=== PATIENT | female | born 1965 | race Hispanic/Latino ===

== ENCOUNTER 2019-06-10 23:47 | Inpatient (IN) | payer BC, OTHER ==
[~2019-06-10] VITALS: Ht 160 cm; Wt 118.4 kg
--- NOTE | 2019-06-10 11:00 | NUR ---
INI[facility] LIVES W SPOUSE WHO WILL PROVIDE TRANSPORT HOME- HOME SAFE AND ACCESSIBEL, NO STAIRS, H/CAPPED RESTROOM, USES A CANE ON OCCAISION. HERE Javier RINALDI, HAD THIS ONCE BEFORE, RESOLVED COMPLETELY DCP IS HOME Addendum: 06/11/19 at 1805 by KOLTON LEYVA RN CM Amended: Links added. Addendum: 06/14/19 at 1808 by KOLTON LEYVA RN CM DISREGARD- WRONG PT
--- NOTE | 2019-06-10 11:01 | NUR ---
CM NOTE 1100 WRONG PT
[2019-06-11] MEDS ORDERED: KETOROLAC TROMETHAMINE 30MG/ML ONE (00:23)
[2019-06-11] MEDS ORDERED: ONDANSETRON HCL 4 MG/2 ML VIAL ONE (00:23)
[2019-06-11] MEDS ORDERED: SODIUM CHLORIDE 0.9% 1000ML 1,000 ML IV ONE (00:24)
[2019-06-11 00:33] LABS: EOSINOPHILS % (AUTO) 4.5 % (0.0-8.0); HEMATOCRIT 39.9 % (36-48); LYMPHOCYTES % (AUTO) 33.1 % (21.0-51.0); MEAN CORPUSCULAR HEMOGLOBIN 31.6 pg (27.0-33.0); MEAN CORPUSCULAR HGB CONC 33.9 g/dL (32.0-36.0); MONOCYTES % (AUTO) 8.1 % (3.0-13.0); NEUTROPHILS % (AUTO) 53.3 % (40.0-77.0); PLATELET COUNT (AUTO) 236 K/uL (130-400); RED BLOOD CELL COUNT(AUTO) 4.28 MIL/uL (4.00-5.50); RED CELL DISTRIBUTION WIDTH 13.8 % (11.0-15.5); WHITE BLOOD COUNT (AUTO) 10.2 K/uL (4.8-10.8)
[2019-06-11 00:34] LABS: BILIRUBIN,URINE Negative (NEGATIVE); COLOR,URINE Yellow (YELLOW); GLUCOSE, URINE (UA) Negative (NEGATIVE); KETONES,URINE Negative (NEGATIVE); LEUKOCYTE ESTERASE ,URINE Trace (NEGATIVE); NITRATE,URINE Negative (NEGATIVE); OCCULT BLOOD,URINE Large (NEGATIVE); PROTEIN,URINE Trace mg/dL (NEGATIVE)
[2019-06-11 00:36] LABS: APPEARANCE,URINE SLIGHTLY CLOUDY (CLEAR)
[2019-06-11 00:55] LABS: RBC,URINE 51-100 /HPF (0-1)
[2019-06-11 00:56] LABS: BACTERIA,URINE Rare /HPF (None Seen); MUCUS,URINE Rare LPF (None Seen)
[2019-06-11] MEDS ORDERED: MORPHINE SULFATE 4 MG/1ML SYG ONE ×2 (00:58→02:09)
[2019-06-11 01:12] LABS: ALBUMIN 3.5 g/dL (3.5-5.0); BILIRUBIN,TOTAL 0.4 mg/dL (0.2-1.0); CREATININE 0.8 mg/dL (0.5-1.5); POTASSIUM 3.8 mmol/L (3.5-5.1); TOTAL PROTEIN, SERUM 7.1 g/dL (6.0-8.3)
[2019-06-11] MEDS ORDERED: KETOROLAC TROMETHAMINE 30MG/ML IV PRN (03:45)
[2019-06-11 04:48] VITALS: BP 167/99
--- NOTE | 2019-06-11 05:04 | NUR ---
ADMIT PT ADMITTED TO ROOM 408,AAOX3. NO COMPLAINTS OF LEFT FLANK PAINS NOR ANY DISCOMFORT AT THIS TIME. ADMISSION CARE DONE. ADMISSION DATA BASE COMPLETED. PLACED PT NPO, PT VERBALIZES UNDERSTANDING. PCP ASSISTED PT TO SHOWER. IN FOR MORE CARE AND MANAGEMENT. Addendum: 06/11/19 at 0513 by SCOTTY MESSINA RN RN Amended: Links added.
[2019-06-11] MEDS: SODIUM CHLORIDE 0.9% 1000ML 1,000 ML IV SCH ×2 (05:18→18:25)
[2019-06-11 08:00] VITALS: BP 133/74
[2019-06-11] MEDS ORDERED: HYDROCODONE/ACETAMINOPHEN 5/325 MG TAB PO PRN (09:15)
[2019-06-11] MEDS ORDERED: ACETAMINOPHEN 325 MG TAB PO PRN (09:15)
[2019-06-11] MEDS ORDERED: HYDRALAZINE HCL 20 MG/ML VIAL IV PRN (09:15)
--- NOTE | 2019-06-11 09:30 | NUR ---
[facility] MET Javier CLARKE, AMALIAIOUSLY GRIACING IN PAIN, UNCOMFORTABLE, JUST RECENTLY MEDICATED, PT IS INDP OF ADLS, WORKS, DRIVES, NO DME, LIVES WITH SON AND NEPHEW WHO WILL SUPPLY TRANSPORT HOME, UNINSURED, GOES TO [employer], PAYS SHE GOES. DCP IS HOME, CM TO FOLLOW Addendum: 06/11/19 at 1809 by KOLTON LEYVA RN CM Amended: Links added.
[2019-06-11] MEDS: FAMOTIDINE/PF 20 MG/2 ML VIAL IV SCH ×2 (10:53→20:07)
[2019-06-11] MEDS: KETOROLAC TROMETHAMINE 30MG/ML IV PRN ×2 (10:53→22:53)
[2019-06-11] MEDS: ENOXAPARIN SODIUM 30 MG/0.3 ML SQ SCH (10:54)
[2019-06-11 11:00] VITALS: BP 147/90
[2019-06-11 16:00] VITALS: BP 154/75
--- NOTE | 2019-06-11 18:00 | NUR ---
INITIAL MET W PATIENT, OBVIOUSLY IN GREAT PAIN, FACIAL GRIMACING AND GUARDING, W KIDNEY STONES, H2ND BOUT, IN 2 YERS; EMPLOYED, INDP, NO DME, DRIVES, NO INSURANCE, GOES TO [facility] AND PAYS SHE GOES. HOME SAFE AND ACCESSIBLE, [facility] WILL PROVIDE TRANSPORT HOME. DCP HOME AFTER PROCEDURE .CM TO FOLLOW Addendum: 06/11/19 at 1805 by KOLTON LEYVA RN CM Amended: Links added.
[2019-06-11 19:03] VITALS: BP 172/89
--- NOTE | 2019-06-11 19:09 | NUR ---
UROLOGY DR. ARORA IN TO SEE PATIENT. NEW ORDERS RECEIVED.
[2019-06-11] MEDS ORDERED: MAGNESIUM CITRATE 296 ML SOLUTION PO ONE (21:00)
[2019-06-11] MEDS ORDERED: LACTULOSE 20 GM/30 ML UDCUP PO SCH (21:00)
[2019-06-11] MEDS: MORPHINE SULFATE 2 MG/ML 1ML SYG IVP PRN (21:20)
[2019-06-11 23:29] VITALS: BP 135/84
[2019-06-12 04:00] VITALS: BP 131/77
[2019-06-12] MEDS: MORPHINE SULFATE 2 MG/ML 1ML SYG IVP PRN ×2 (04:19→10:19)
[2019-06-12 04:58] LABS: BASOPHILS % (AUTO) 0.7 % (0.0-5.0); EOSINOPHILS % (AUTO) 4.8 % (0.0-8.0); HEMATOCRIT 38.2 % (36-48); LYMPHOCYTES % (AUTO) 29.6 % (21.0-51.0); MEAN CORPUSCULAR HEMOGLOBIN 31.7 pg (27.0-33.0); MEAN CORPUSCULAR HGB CONC 33.5 g/dL (32.0-36.0); MEAN CORPUSCULAR VOLUME 94.7 fL (79-99); MONOCYTES % (AUTO) 8.6 % (3.0-13.0); NEUTROPHILS % (AUTO) 56.3 % (40.0-77.0); NUCLEATED RED BLOOD CELLS 0.1 % (0.0-0.19); PLATELET COUNT (AUTO) 201 K/uL (130-400); RED BLOOD CELL COUNT(AUTO) 4.03 MIL/uL (4.00-5.50); WHITE BLOOD COUNT (AUTO) 9.5 K/uL (4.8-10.8)
[2019-06-12 05:06] LABS: CREATININE 0.7 mg/dL (0.5-1.5); POTASSIUM 3.8 mmol/L (3.5-5.1)
[2019-06-12] MEDS: KETOROLAC TROMETHAMINE 30MG/ML IV PRN ×2 (06:09→16:02)
[2019-06-12] MEDS ORDERED: IOHEXOL 350 MG/ML 100ML INFUS..BTL IV ONE ×2 (07:11→08:04)
[2019-06-12 08:00] VITALS: BP 133/81
[2019-06-12] MEDS: ENOXAPARIN SODIUM 30 MG/0.3 ML SQ SCH ×2 (09:00→10:17)
[2019-06-12] MEDS: TAMSULOSIN HCL 0.4 MG CAP.ER.24H PO SCH (10:18)
[2019-06-12] MEDS: SODIUM CHLORIDE 0.9% 1000ML 1,000 ML IV SCH ×2 (10:18→20:11)
[2019-06-12] MEDS: FAMOTIDINE/PF 20 MG/2 ML VIAL IV SCH ×2 (10:18→20:11)
[2019-06-12 11:52] VITALS: BP 151/79
[2019-06-12 16:04] VITALS: BP 130/72
[2019-06-12 19:52] VITALS: BP 149/85
--- NOTE | 2019-06-12 21:58 | NUR ---
PAGED. PAGED AT THIS TIME, HAS NOT BEEN IN TO SEE PT TODAY, PT IS REQUESTING TO KNOW PLAN OF CARE, STATES HAS BEEN NPO SINCE ADMISSION. PENDING CALL BACK FROM .
[2019-06-13] VITALS (14 sets, daily range): BP systolic 113–159; BP diastolic 63–113
[2019-06-13] MEDS: KETOROLAC TROMETHAMINE 30MG/ML IV PRN ×4 (00:44→22:33)
[2019-06-13] MEDS: SODIUM CHLORIDE 0.9% 1000ML 1,000 ML IV SCH ×2 (05:14→20:53)
[2019-06-13 05:32] LABS: BASOPHILS % (AUTO) 1.1 % (0.0-5.0); EOSINOPHILS % (AUTO) 5.6 % (0.0-8.0); HEMATOCRIT 37.4 % (36-48); LYMPHOCYTES % (AUTO) 25.9 % (21.0-51.0); MEAN CORPUSCULAR HEMOGLOBIN 31.9 pg (27.0-33.0); MEAN CORPUSCULAR VOLUME 93.9 fL (79-99); MONOCYTES % (AUTO) 9.4 % (3.0-13.0); PLATELET COUNT (AUTO) 211 K/uL (130-400); RED BLOOD CELL COUNT(AUTO) 3.98 MIL/uL (4.00-5.50); RED CELL DISTRIBUTION WIDTH 13.8 % (11.0-15.5)
[2019-06-13 05:52] LABS: CREATININE 0.8 mg/dL (0.5-1.5); POTASSIUM 4.3 mmol/L (3.5-5.1)
--- NOTE | 2019-06-13 06:48 | NUR ---
PAGED. PAGED AGAIN AT THIS TIME, NO CALL BACK FROM LAST NIGHT. PT CONTINUES TO REQUEST TO KNOW PLAN OF CARE, CONTINUES TO BE NPO. PENDING CALL BACK FROM , MORNING NURSE BLAKE BARRIOS.
--- NOTE | 2019-06-13 08:20 | NUR ---
CALLED DR. ARORA'S OFFICE/SPOKE WITH BHARAT FAXED IVP RESULTS TO [facility] PER BHARAT INFORMATION.
[2019-06-13] MEDS: ENOXAPARIN SODIUM 30 MG/0.3 ML SQ SCH (09:00)
[2019-06-13] MEDS: FAMOTIDINE/PF 20 MG/2 ML VIAL IV SCH ×2 (09:01→20:46)
[2019-06-13] MEDS: TAMSULOSIN HCL 0.4 MG CAP.ER.24H PO SCH (09:02)
[2019-06-13 09:48] LABS: INR 0.95 (0.85-1.15); PARTIAL THROMBOPLASTIN TIME 27.6 SEC (26.3-35.5)
[2019-06-13] MEDS ORDERED: LIDOCAINE HCL 2% 20ML ONE (13:06)
[2019-06-13] MEDS ORDERED: IODIXANOL 320 MG/ML 100 ML VIAL ONE (13:06)
[2019-06-13] MEDS ORDERED: SODIUM BICARB 50MEQ 50ML VIAL ONE (13:06)
[2019-06-13] MEDS ORDERED: MIDAZOLAM HCL 1 MG/ML 2ML VIAL ONE (13:33)
[2019-06-13] MEDS ORDERED: FENTANYL CITRATE PF 50 MCG/1 ML 2ML VIAL ONE (13:33)
[2019-06-14 04:16] VITALS: BP 148/77
[2019-06-14] MEDS: KETOROLAC TROMETHAMINE 30MG/ML IV PRN ×2 (05:30→12:53)
[2019-06-14 05:33] LABS: BASOPHILS % (AUTO) 0.7 % (0.0-5.0); EOSINOPHILS % (AUTO) 6.7 % (0.0-8.0); HEMATOCRIT 36.9 % (36-48); LYMPHOCYTES % (AUTO) 27.8 % (21.0-51.0); MEAN CORPUSCULAR HEMOGLOBIN 31.6 pg (27.0-33.0); MEAN CORPUSCULAR HGB CONC 33.4 g/dL (32.0-36.0); MEAN CORPUSCULAR VOLUME 94.6 fL (79-99); MONOCYTES % (AUTO) 8.5 % (3.0-13.0); NEUTROPHILS % (AUTO) 56.3 % (40.0-77.0); PLATELET COUNT (AUTO) 175 K/uL (130-400); RED CELL DISTRIBUTION WIDTH 13.7 % (11.0-15.5); WHITE BLOOD COUNT (AUTO) 8.2 K/uL (4.8-10.8)
[2019-06-14 05:46] LABS: CREATININE 0.7 mg/dL (0.5-1.5); POTASSIUM 3.2 mmol/L (3.5-5.1)
[2019-06-14 07:45] VITALS: BP 141/74
[2019-06-14] MEDS: ENOXAPARIN SODIUM 30 MG/0.3 ML SQ SCH (08:22)
--- NOTE | 2019-06-14 08:22 | NUR ---
LOVENOX HELD AT PRESENT DUE TO LIGHT HEMATURIA; WILL CLARIFY W/ MD IF NEED TO CONTINUE OR D/C.
[2019-06-14] MEDS: TAMSULOSIN HCL 0.4 MG CAP.ER.24H PO SCH (08:42)
[2019-06-14] MEDS: SODIUM CHLORIDE 0.9% 1000ML 1,000 ML IV SCH (08:44)
[2019-06-14] MEDS: FAMOTIDINE/PF 20 MG/2 ML VIAL IV SCH (08:44)
--- NOTE | 2019-06-14 10:00 | NUR ---
NOTIFIED BRADLEY STAFFORD OF LIGHT HEMATURIA; HE STATED IS TO BE EXPECTED, INSTRUCTED TO HOLD LOVENOX.
[2019-06-14] MEDS ORDERED: LEVO500T2 PO (10:49)
[2019-06-14] MEDS ORDERED: TYL3 PO (10:49)
[2019-06-14 11:00] VITALS: BP 119/70
[2019-06-14] MEDS ORDERED: POTASSIUM CHLORIDE 20 MEQ ERTAB PO SCH (11:30)
--- NOTE | 2019-06-14 14:57 | NUR ---
DISCHARGE TEACHING COMPLETED IN THE ROOM WITH PT AND FAMILY AT SIDE. EMPHASIS ON DX, S/S TO MONITOR FOR, WHEN TO SEEK EMERGENCY CARE VS DIAL 911. EMPHASIS ON NEPHROSTOMY TUBE CARE, SECURED TO ABDOMEN. TEACHBACK UTILIZED. FOLLOW UP APPTS MADE FOR PCP AND DR ARORA. PIV REMOVED, TIP INTACT, DRESSED WITH STERILE 2X2 AND TAPE AFTER HEMOSTASIS. WRITTEN RX FOR LEVAQUIN AND TYLENOL #3 GIVEN TO PT. DISCUSSED PURPOSE, ROUTE, FREQUENCY, AND DURATION OF TREATMENT, WELL SIDE EFFECTS AND ADVERSE EFFECTS. ALL QUESTIONS ADDRESSED. PT VOICED UNDERSTANDING. PT WHEELED TO FRONT LOBBY BY [facility] STAFF FOR TRANSPORT HOME VIA PRIVATE CAR. PT IN STABLE CONDITION AT TIME OF DISCHARGE.
== END 2019-06-14 14:57 | disposition home or self-care (01) | DRG 694 ==
LOC: EDH 23:47 → EDHIP 23:48 → 4BH 06-11 04:12
PROVIDERS: ADMIT Hospitalist; ATTEND Hospitalist
PROC: 0T9130Z Drainage of Left Kidney with Drainage Device, Percutaneous Approach (ICD-10-PCS; principal; 2019-06-13)
DX: N13.2 Hydronephrosis with renal and ureteral calculous obstruction (principal); Z90.710 Acquired absence of both cervix and uterus; Z87.442 Personal history of urinary calculi
CPT/HCPCS: 36415; 50432; 74176; 74400; 80048; 80053; 81001; 85025; 85610; 85730; 99156; 99157; C1729; C1769; C1894; G0378; J1644; J1650; J1885; J2250; J2270; J2405; J3010; J3490; J7030; Q9967

== ENCOUNTER 2019-07-10 23:35 | Emergency (ER) | payer SELFPAY ==
[~2019-07-10 23:35] MED LIST: LEVO500T2 PO; TYL3 PO
[2019-07-11] MEDS ORDERED: KETOROLAC TROMETHAMINE 30MG/ML ONE (00:16)
[2019-07-11 00:31] LABS: BILIRUBIN,URINE Negative (NEGATIVE); COLOR,URINE Yellow (YELLOW); GLUCOSE, URINE (UA) Negative (NEGATIVE); KETONES,URINE Trace mg/dL (NEGATIVE); LEUKOCYTE ESTERASE ,URINE Large (NEGATIVE); NITRATE,URINE Negative (NEGATIVE); OCCULT BLOOD,URINE Large (NEGATIVE); PH,URINE 5.5 (5.0-8.0); PROTEIN,URINE POS 2+ mg/dL (NEGATIVE)
[2019-07-11 00:31] LABS: BASOPHILS % (AUTO) 1.5 % (0.0-5.0); LYMPHOCYTES % (AUTO) 35.7 % (21.0-51.0); MEAN CORPUSCULAR HEMOGLOBIN 31.2 pg (27.0-33.0); MEAN CORPUSCULAR HGB CONC 33.6 g/dL (32.0-36.0); MEAN CORPUSCULAR VOLUME 92.6 fL (79-99); MONOCYTES % (AUTO) 7.6 % (3.0-13.0); NEUTROPHILS % (AUTO) 47.2 % (40.0-77.0); PLATELET COUNT (AUTO) 212 K/uL (130-400); RED BLOOD CELL COUNT(AUTO) 4.42 MIL/uL (4.00-5.50); RED CELL DISTRIBUTION WIDTH 13.3 % (11.0-15.5); WHITE BLOOD COUNT (AUTO) 9.6 K/uL (4.8-10.8)
[2019-07-11 00:33] LABS: APPEARANCE,URINE SLIGHTLY CLOUDY (CLEAR)
[2019-07-11 00:38] LABS: CREATININE 0.9 mg/dL (0.5-1.5); POTASSIUM 4.3 mmol/L (3.5-5.1)
[2019-07-11] MEDS ORDERED: METOCLOPRAMIDE 10 MG/2 ML VIAL ONE (00:42)
[2019-07-11] MEDS ORDERED: ONDANSETRON HCL 4 MG/2 ML VIAL ONE (00:42)
[2019-07-11] MEDS ORDERED: SODIUM CHLORIDE 0.9% 1000ML 1,000 ML IV ONE (00:43)
[2019-07-11 00:44] LABS: ALBUMIN 3.6 g/dL (3.5-5.0); BILIRUBIN,TOTAL 0.4 mg/dL (0.2-1.0); TOTAL PROTEIN, SERUM 7.4 g/dL (6.0-8.3)
[2019-07-11 00:46] LABS: BACTERIA,URINE None Seen /HPF (None Seen); MUCUS,URINE Moderate LPF (None Seen); RBC,URINE 26-50 /HPF (0-1); SQUAMOUS EPITHELIAL CELL,UR Rare /HPF (0-2); YEAST,URINE BUDDING Many /HPF (None Seen)
[2019-07-11 00:52] LABS: INR 0.95 (0.85-1.15); PARTIAL THROMBOPLASTIN TIME 27.3 SEC (26.3-35.5)
[2019-07-11] MEDS ORDERED: FLUCONAZOLE 100 MG TAB ONE (01:55)
[2019-07-11] MEDS ORDERED: ORPHENADRINE CITRATE 30 MG/ML ML ONE (01:56)
[2019-07-11] MEDS ORDERED: TAMSULOSIN HCL 0.4 MG CAP.ER.24H ONE (03:21)
[2019-07-11] MEDS ORDERED: HYDROCODONE/ACETAMINOPHEN 10/325 MG TAB ONE (03:21)
== END 2019-07-11 04:07 | disposition home or self-care (01) ==
LOC: EDH 23:35
DX: N20.1 Calculus of ureter (principal); M54.5 Low back pain; M62.838 Other muscle spasm; R11.2 Nausea with vomiting, unspecified; Z90.710 Acquired absence of both cervix and uterus; Z72.0 Tobacco use
CPT/HCPCS: 36415; 74176; 80053; 81001; 82550; 83605; 83690; 85025; 85610; 85730; 96374; 96375 ×2; 99285; J1885; J2360; J2405; J2765; J7030

== ENCOUNTER 2019-07-22 08:43 | Inpatient (IN) | payer SELFPAY ==
[~2019-07-22] VITALS: Ht 154.9 cm; Wt 114.9 kg
[2019-07-22 09:39] LABS: APPEARANCE,URINE Cloudy (CLEAR); BILIRUBIN,URINE Negative (NEGATIVE); COLOR,URINE Yellow (YELLOW); GLUCOSE, URINE (UA) Negative (NEGATIVE); KETONES,URINE Negative (NEGATIVE); LEUKOCYTE ESTERASE ,URINE Large (NEGATIVE); NITRATE,URINE Negative (NEGATIVE); OCCULT BLOOD,URINE Moderate (NEGATIVE); PH,URINE 6.5 (5.0-8.0); PROTEIN,URINE POS 1+ mg/dL (NEGATIVE)
[2019-07-22 09:51] LABS: WBC,URINE TNTC /HPF (0-1)
[2019-07-22 09:54] LABS: BACTERIA,URINE Few /HPF (None Seen)
[2019-07-22 09:55] LABS: SQUAMOUS EPITHELIAL CELL,UR Moderate /HPF (0-2)
[2019-07-22 10:00] LABS: BASOPHILS % (AUTO) 0.4 % (0.0-5.0); EOSINOPHILS % (AUTO) 0.4 % (0.0-8.0); HEMATOCRIT 39.6 % (36-48); LYMPHOCYTES % (AUTO) 14.6 % (21.0-51.0); MEAN CORPUSCULAR HEMOGLOBIN 31.5 pg (27.0-33.0); MEAN CORPUSCULAR HGB CONC 33.6 g/dL (32.0-36.0); MEAN CORPUSCULAR VOLUME 93.7 fL (79-99); NEUTROPHILS % (AUTO) 77.6 % (40.0-77.0); PLATELET COUNT (AUTO) 197 K/uL (130-400); RED BLOOD CELL COUNT(AUTO) 4.23 MIL/uL (4.00-5.50); RED CELL DISTRIBUTION WIDTH 13.6 % (11.0-15.5); WHITE BLOOD COUNT (AUTO) 11.2 K/uL (4.8-10.8)
[2019-07-22 10:09] LABS: CREATININE 0.9 mg/dL (0.5-1.5); POTASSIUM 3.3 mmol/L (3.5-5.1)
[2019-07-22 10:14] LABS: ALBUMIN 3.4 g/dL (3.5-5.0); BILIRUBIN,TOTAL 0.9 mg/dL (0.2-1.0); TOTAL PROTEIN, SERUM 7.4 g/dL (6.0-8.3)
[2019-07-22 10:20] LABS: INR 0.97 (0.85-1.15); PARTIAL THROMBOPLASTIN TIME 30.6 SEC (26.3-35.5); PROTHROMBIN TIME 10.2 SEC (9.6-11.6)
[2019-07-22] MEDS ORDERED: ONDANSETRON HCL 4 MG/2 ML VIAL ONE (11:15)
[2019-07-22] MEDS ORDERED: ZOSYN 3.375GM+NS 50ML 50 ML IV ONE (11:15)
[2019-07-22] MEDS ORDERED: SODIUM CHLORIDE 0.9% 1000ML 1,000 ML IV ONE ×2 (11:16→15:42)
[2019-07-22] MEDS ORDERED: ACETAMINOPHEN EXTRA STRENGTH 500 MG TABLET ONE (11:16)
[2019-07-22] MEDS ORDERED: MORPHINE SULFATE 4 MG/1ML SYG ONE (11:18)
[2019-07-22] MEDS: SODIUM CHLORIDE 0.9% 1000ML 1,000 ML IV SCH (14:29)
[2019-07-22] MEDS ORDERED: ONDANSETRON HCL 4 MG/2 ML VIAL IV PRN (14:30)
[2019-07-22] MEDS ORDERED: MORPHINE SULFATE 2 MG/ML 1ML SYG ONE (15:41)
[2019-07-22] MEDS ORDERED: ACETAMINOPHEN 325 MG TAB ONE (17:31)
[2019-07-22 20:45] VITALS: BP 146/79
--- NOTE | 2019-07-22 21:00 | NUR ---
MD DR ARORA ON THE FLOOR AND INFORMED OF CONSULT. VERBALIZES THAT HE IS ALREADY IS AWARE OF PT'S CASE. MD IS UPSET ABOUT DOCUMENTATION DONE IN ER ABOUT CONSULT. RESOURCE NURSE MADE AWARE AND MD TALKED TO RESOURCE NURSE ABOUT HIS COMPLAINTS. MD STATED THAT HE DOES NOT WANT TO BE ON THE CASE UNLESS THE DOCUMENTATION IS FIXED. PT HEARD WHAT MD HAD SAID AND IS UPSET. APOLOGIZED TO PT AND EXPLAINED THAT WHATEVER MISUNDERSTANDING WILL BE SORT OUT AND SHE WILL BE CARED FOR WHILE SHE IS THE HOSPITAL. PT CALM DOWN AND KEPT COMFORTABLE IN BED. ADMISSION CARE DONE. V/S MONITORED, STABLE. CONTINUED IVF OF NS REGULATED AT 1OOCC/HR ORDERED. IN FOR MORE CARE AND MANAGEMENT.
[2019-07-22] MEDS: FAMOTIDINE/PF 20 MG/2 ML VIAL IV SCH (21:36)
[2019-07-22] MEDS: ZOSYN 3.375GM+NS 50ML 50 ML IV SCH (21:36)
[2019-07-22] MEDS: HYDROCODONE/ACETAMINOPHEN 5/325 MG TAB PO PRN (21:45)
[2019-07-22 23:00] VITALS: BP 133/68
[2019-07-22] MEDS: ACETAMINOPHEN 325 MG TAB PO PRN (23:27)
--- NOTE | 2019-07-22 23:27 | NUR ---
FEVER PT'S TEMPERATURE =100, WARM TO TOUCH. MEDICATED WITH TYLENOL PO. COLD PACK APPLIED. WILL RE-ASSESS PT.
[2019-07-23] VITALS (13 sets, daily range): BP systolic 113–139; BP diastolic 54–81
[2019-07-23] MEDS: SODIUM CHLORIDE 0.9% 1000ML 1,000 ML IV SCH ×4 (00:29→18:36)
--- NOTE | 2019-07-23 02:00 | NUR ---
ROUNDS PT RESTING WELL, FAIRLY ASLEEP. WITH RESPIRATIONS EVEN AND UNLABORED. KEPT RESTED AND COMFORTABLE. CALL LIGHT WITHIN REACH. WILL MONITOR PT.
[2019-07-23] MEDS: ZOSYN 3.375GM+NS 50ML 50 ML IV SCH ×3 (04:41→20:15)
--- NOTE | 2019-07-23 05:36 | NUR ---
SHOWER CONSENT FOR LEFT NEPHROSTOMY EXCHANGE SIGNED BY PT AND WITNESSED BY PHOTOVOLTAIC PANEL INSTALLER. PT HAD HER SHOWER, TOLERATED ACTIVITY WELL. KEPT RESTED IN BED. CONTINUED IVF AND IV ANTIBIOTICS INFUSION. KEPT NPO. FOR MORE CARE.
[2019-07-23 05:53] LABS: BASOPHILS % (AUTO) 0.6 % (0.0-5.0); EOSINOPHILS % (AUTO) 1.2 % (0.0-8.0); HEMATOCRIT 38.2 % (36-48); LYMPHOCYTES % (AUTO) 17.2 % (21.0-51.0); MEAN CORPUSCULAR HEMOGLOBIN 31.8 pg (27.0-33.0); MEAN CORPUSCULAR HGB CONC 33.4 g/dL (32.0-36.0); MEAN CORPUSCULAR VOLUME 94.9 fL (79-99); MONOCYTES % (AUTO) 8.3 % (3.0-13.0); NEUTROPHILS % (AUTO) 72.7 % (40.0-77.0); PLATELET COUNT (AUTO) 182 K/uL (130-400); RED BLOOD CELL COUNT(AUTO) 4.03 MIL/uL (4.00-5.50); RED CELL DISTRIBUTION WIDTH 13.7 % (11.0-15.5); WHITE BLOOD COUNT (AUTO) 11.1 K/uL (4.8-10.8)
[2019-07-23] MEDS: MORPHINE SULFATE 2 MG/ML 1ML SYG IV PRN ×3 (05:58→18:29)
[2019-07-23] MEDS ORDERED: LIDOCAINE HCL 1% MDV 50ML VIAL ONE (07:33)
[2019-07-23] MEDS ORDERED: IOHEXOL-350 50ML VIAL IV ONE (07:33)
[2019-07-23] MEDS ORDERED: MIDAZOLAM HCL 1 MG/ML 2ML VIAL ONE (08:40)
[2019-07-23] MEDS ORDERED: FENTANYL CITRATE PF 50 MCG/1 ML 2ML VIAL ONE (08:52)
[2019-07-23] MEDS: ENOXAPARIN SODIUM 40 MG/0.4 ML SYRINGE SQ SCH (09:00)
--- NOTE | 2019-07-23 13:05 | NUR ---
DCP CM met with pt discussed dc plans. Pt is independent prior to admission, lives at home w/son and nephew. Denies any equipments/services. Pt states she goes to Dr David Chavira for follow up. Pt is a self pay, [facility] assisting, given [employer] packet. DC plan to home once stable. CM to cont to follow up. Addendum: 07/23/19 at 1306 by SABINO LOMELI LVN CM Amended: Links added.
[2019-07-23] MEDS: HYDROCODONE/ACETAMINOPHEN 5/325 MG TAB PO PRN ×2 (14:27→20:15)
[2019-07-23] MEDS: FAMOTIDINE/PF 20 MG/2 ML VIAL IV SCH ×2 (14:29→20:15)
--- NOTE | 2019-07-23 14:52 | NUR ---
DR. ARORA Contated Dr. Arora's office. Spoke to Zenaida. Stated Dr. Arora not in the office now; that he is in surgeries. And that he will talk to patient about her questions she has about any possible surgery. Patient updated and verbalizes and demonstrates understanding.
--- NOTE | 2019-07-23 20:15 | NUR ---
MEDS SHIFT ASSESSMENT DONE, PLEASE REFER TO CHART. DUE MEDS ADMINISTERED, NORCO PO GIVEN FOR PAIN. KEPT COMFORTABLE AND RESTED. CALL LIGHT WITHIN REACH. WILL RE-ASSESS PT.
--- NOTE | 2019-07-23 20:33 | NUR ---
MD DR ARORA IN TO SEE PT. QUESTIONS OF PT ANSWERED BY . NO NEW ORDERS GIVEN.
--- NOTE | 2019-07-23 22:50 | NUR ---
ITCHING PT COMPLAINTS OF ITCHING ON NEPHROSTOMY SITE DRESSING. NO REDNESS NOR DRAINAGE NOTED. TYRON SANTIZO NP HISTORICAL SOCIETY DIRECTOR FOR HOSPITALIST, VIA ANSWERING SERVICE. AWAITING CALL BACK.
--- NOTE | 2019-07-23 22:51 | NUR ---
DELFINA SANTIZO NP, CALLED BACK AND REFERRED PT'S COMPLAINTS. NEW MED ORDER FOR BENADRYL PRN GIVEN. WILL MEDICATE PT.
[2019-07-23] MEDS: DIPHENHYDRAMINE HCL 25 MG CAPSULE PO PRN (23:49)
[2019-07-24] MEDS: MORPHINE SULFATE 2 MG/ML 1ML SYG IV PRN ×3 (00:05→10:54)
--- NOTE | 2019-07-24 02:00 | NUR ---
ROUNDS PT RESTING WELL, FAIRLY ASLEEP WITH RESPIRATIONS EVEN AND UNLABORED. NO DISTRESS NOTED. KEPT RESTED AND COMFORTABLE. CALL LIGHT WITHIN REACH. WILL MONITOR PT.
--- NOTE | 2019-07-24 04:00 | NUR ---
PAIN PT CLAIMS OF PAINS TO LEFT FLANK AREA. MEDICATED WITH MORPHINE IV. KEPT RESTED AND COMFORTABLE. IV ZOSYN INFUSED. WILL RE-ASSESS PT. Addendum: 07/24/19 at 0438 by SCOTTY MESSINA RN RN Amended: Links added.
[2019-07-24] MEDS: ZOSYN 3.375GM+NS 50ML 50 ML IV SCH ×3 (04:13→21:36)
[2019-07-24 04:45] VITALS: BP 117/57
[2019-07-24 06:02] LABS: BASOPHILS % (AUTO) 0.7 % (0.0-5.0); EOSINOPHILS % (AUTO) 3.4 % (0.0-8.0); HEMATOCRIT 32.3 % (36-48); LYMPHOCYTES % (AUTO) 17.5 % (21.0-51.0); MEAN CORPUSCULAR HEMOGLOBIN 31.7 pg (27.0-33.0); MEAN CORPUSCULAR VOLUME 93.1 fL (79-99); MONOCYTES % (AUTO) 12.3 % (3.0-13.0); NEUTROPHILS % (AUTO) 66.1 % (40.0-77.0); PLATELET COUNT (AUTO) 185 K/uL (130-400); RED BLOOD CELL COUNT(AUTO) 3.47 MIL/uL (4.00-5.50); RED CELL DISTRIBUTION WIDTH 13.6 % (11.0-15.5); WHITE BLOOD COUNT (AUTO) 8.1 K/uL (4.8-10.8)
[2019-07-24] MEDS: SODIUM CHLORIDE 0.9% 1000ML 1,000 ML IV SCH ×2 (06:25→14:28)
[2019-07-24 06:34] LABS: ALBUMIN 2.5 g/dL (3.5-5.0); BILIRUBIN,TOTAL 0.7 mg/dL (0.2-1.0); CREATININE 0.7 mg/dL (0.5-1.5); TOTAL PROTEIN, SERUM 6.3 g/dL (6.0-8.3)
[2019-07-24 07:00] VITALS: BP 113/71
--- NOTE | 2019-07-24 07:04 | NUR ---
MD DR DELEON MAKING ROUNDS AT THIS TIME. INFORMED OF PANIC LEVEL OF POTASSIUM=3.0. PLEASE REFER TO CPOE FOR NEW ORDERS. FOR MORE CARE.
[2019-07-24] MEDS: DIPHENHYDRAMINE HCL 25 MG CAPSULE PO PRN ×2 (09:00→21:50)
[2019-07-24] MEDS: ENOXAPARIN SODIUM 40 MG/0.4 ML SYRINGE SQ SCH (09:01)
[2019-07-24] MEDS: POTASSIUM CHLORIDE 20 MEQ ERTAB PO SCH ×2 (09:01→14:28)
[2019-07-24] MEDS: FAMOTIDINE/PF 20 MG/2 ML VIAL IV SCH ×2 (09:01→21:35)
[2019-07-24] MEDS: HYDROCODONE/ACETAMINOPHEN 5/325 MG TAB PO PRN ×3 (09:04→21:36)
[2019-07-24 11:00] VITALS: BP 110/83
[2019-07-24 13:15] LABS: CREATININE 0.9 mg/dL (0.5-1.5); POTASSIUM 3.9 mmol/L (3.5-5.1)
[2019-07-24 16:00] VITALS: BP 123/77
--- NOTE | 2019-07-24 17:30 | NUR ---
CALLED TO [facility] OFFICE AND SPOKE WITH INGA REGARDING PRIMARY DOCTOR PANCHO WANTING TO KNOW THE PLAN IF ANY INTERVENTION WILL BE DONE WHILE IN HOSPITAL DUE TO DISCHARGE PLAN ..PER INGA WILL LET [facility] KNOW AND CALL BACK . PENDING CALL BACK
--- NOTE | 2019-07-24 18:42 | NUR ---
CALL BACK FROM INGA FROM DR FLANNERY OFFICE ,PER TO LOOK AT HIS NOTES . WILL FOLLOW UP ON HIS NOTES AND NOTIFY DR DELEON
[2019-07-24 20:00] VITALS: BP 129/77
[2019-07-24] MEDS: TEMAZEPAM 7.5 MG CAPSULE PO SCH (21:35)
[2019-07-24] MEDS: KETOROLAC TROMETHAMINE 10 MG TABLET PO PRN (23:59)
[2019-07-25] VITALS: BP 122/72
[2019-07-25 04:00] VITALS: BP 141/91
[2019-07-25] MEDS: ZOSYN 3.375GM+NS 50ML 50 ML IV SCH ×3 (05:50→22:04)
[2019-07-25] MEDS: HYDROCODONE/ACETAMINOPHEN 5/325 MG TAB PO PRN (05:51)
[2019-07-25] MEDS: SODIUM CHLORIDE 0.9% 1000ML 1,000 ML IV SCH (05:53)
[2019-07-25 06:18] LABS: HEMATOCRIT 32.7 % (36-48); MEAN CORPUSCULAR HGB CONC 33.7 g/dL (32.0-36.0); PLATELET COUNT (AUTO) 193 K/uL (130-400); RED BLOOD CELL COUNT(AUTO) 3.44 MIL/uL (4.00-5.50); RED CELL DISTRIBUTION WIDTH 13.9 % (11.0-15.5); WHITE BLOOD COUNT (AUTO) 5.1 K/uL (4.8-10.8)
[2019-07-25 06:26] LABS: CREATININE 0.7 mg/dL (0.5-1.5); MAGNESIUM 1.8 mg/dL (1.80-2.40); POTASSIUM 4.3 mmol/L (3.5-5.1)
[2019-07-25] MEDS: POTASSIUM CHLORIDE 20 MEQ ERTAB PO SCH ×2 (06:45→10:04)
[2019-07-25 07:11] VITALS: BP 138/89
[2019-07-25] MEDS: FAMOTIDINE/PF 20 MG/2 ML VIAL IV SCH ×2 (08:25→22:04)
[2019-07-25] MEDS: ENOXAPARIN SODIUM 40 MG/0.4 ML SYRINGE SQ SCH (08:26)
[2019-07-25] MEDS: KETOROLAC TROMETHAMINE 10 MG TABLET PO PRN ×2 (08:26→22:04)
[2019-07-25] MEDS: DIPHENHYDRAMINE HCL 25 MG CAPSULE PO PRN ×2 (11:05→22:04)
[2019-07-25 12:00] VITALS: BP 133/89
[2019-07-25 16:00] VITALS: BP 120/78
[2019-07-25 20:00] VITALS: BP 148/87
[2019-07-25] MEDS: TEMAZEPAM 7.5 MG CAPSULE PO SCH (22:04)
[2019-07-26] VITALS: BP 147/76
[2019-07-26 04:00] VITALS: BP 134/82
[2019-07-26 04:51] LABS: HEMATOCRIT 32.6 % (36-48); MEAN CORPUSCULAR HGB CONC 34.4 g/dL (32.0-36.0); NUCLEATED RED BLOOD CELLS 0.1 % (0.0-0.19); PLATELET COUNT (AUTO) 241 K/uL (130-400); RED BLOOD CELL COUNT(AUTO) 3.51 MIL/uL (4.00-5.50); RED CELL DISTRIBUTION WIDTH 13.3 % (11.0-15.5)
[2019-07-26 05:22] LABS: CREATININE 0.8 mg/dL (0.5-1.5); MAGNESIUM 1.6 mg/dL (1.80-2.40); POTASSIUM 3.6 mmol/L (3.5-5.1)
[2019-07-26] MEDS: KETOROLAC TROMETHAMINE 10 MG TABLET PO PRN ×2 (05:31→21:43)
[2019-07-26] MEDS: ZOSYN 3.375GM+NS 50ML 50 ML IV SCH ×3 (05:31→20:11)
[2019-07-26 08:00] VITALS: BP 151/73
[2019-07-26] MEDS: FAMOTIDINE/PF 20 MG/2 ML VIAL IV SCH ×2 (08:37→20:04)
[2019-07-26] MEDS: ENOXAPARIN SODIUM 40 MG/0.4 ML SYRINGE SQ SCH (08:38)
[2019-07-26] MEDS: HYDROCODONE/ACETAMINOPHEN 5/325 MG TAB PO PRN ×2 (10:47→20:04)
[2019-07-26 11:45] VITALS: BP 160/92
[2019-07-26] MEDS: DIPHENHYDRAMINE HCL 25 MG CAPSULE PO PRN ×2 (14:43→21:43)
[2019-07-26] MEDS ORDERED: MAGNESIUM 2GM PREMIX 50ML 50 ML IV PRN (15:30)
[2019-07-26 16:00] VITALS: BP 145/86
[2019-07-26] MEDS: TEMAZEPAM 7.5 MG CAPSULE PO SCH (20:04)
[2019-07-26 21:05] VITALS: BP 162/94
[2019-07-27] MEDS: HYDROCODONE/ACETAMINOPHEN 5/325 MG TAB PO PRN ×3 (00:12→20:48)
[2019-07-27 00:17] VITALS: BP 144/87
[2019-07-27 04:30] VITALS: BP 136/90
[2019-07-27 05:20] LABS: CHLORIDE 103 mmol/L (101-111); CREATININE 0.8 mg/dL (0.5-1.5); GLUCOSE,RANDOM 87 mg/dL (70-105); PHOSPHORUS 4.2 mg/dL (2.5-4.9); POTASSIUM 3.6 mmol/L (3.5-5.1); SODIUM SERUM 141 mmol/L (136-145); UREA NITROGEN, BLOOD 9 mg/dL (7-18)
[2019-07-27 05:25] LABS: CARBON DIOXIDE 31 mmol/L (21-32)
[2019-07-27] MEDS: ZOSYN 3.375GM+NS 50ML 50 ML IV SCH ×3 (05:31→20:48)
[2019-07-27 05:38] LABS: GLOMERULAR FILTR. RATE CALC 90 mL/min (>60)
[2019-07-27 08:00] VITALS: BP 129/88
[2019-07-27] MEDS: ENOXAPARIN SODIUM 40 MG/0.4 ML SYRINGE SQ SCH (09:08)
[2019-07-27] MEDS: FAMOTIDINE/PF 20 MG/2 ML VIAL IV SCH (09:08)
[2019-07-27] MEDS: MAGNESIUM OXIDE 400 MG TABLET PO SCH (09:11)
[2019-07-27 11:57] VITALS: BP 127/69
[2019-07-27] MEDS: KETOROLAC TROMETHAMINE 10 MG TABLET PO PRN ×2 (13:12→23:25)
[2019-07-27 16:00] VITALS: BP 122/62
[2019-07-27 20:00] VITALS: BP 155/93
[2019-07-27] MEDS: FAMOTIDINE 20MG TAB 20 MG TAB PO SCH (20:44)
[2019-07-27] MEDS: TEMAZEPAM 7.5 MG CAPSULE PO SCH (20:44)
[2019-07-28] VITALS: BP 138/75
[2019-07-28 04:00] VITALS: BP 159/86
[2019-07-28] MEDS: KETOROLAC TROMETHAMINE 10 MG TABLET PO PRN ×3 (05:00→22:09)
[2019-07-28] MEDS: ZOSYN 3.375GM+NS 50ML 50 ML IV SCH ×3 (05:00→20:21)
[2019-07-28 05:56] LABS: HEMATOCRIT 34.9 % (36-48); MEAN CORPUSCULAR HEMOGLOBIN 31.5 pg (27.0-33.0); MEAN CORPUSCULAR HGB CONC 33.6 g/dL (32.0-36.0); MEAN CORPUSCULAR VOLUME 93.8 fL (79-99); NUCLEATED RED BLOOD CELLS 0.1 % (0.0-0.19); PLATELET COUNT (AUTO) 291 K/uL (130-400); RED BLOOD CELL COUNT(AUTO) 3.72 MIL/uL (4.00-5.50); RED CELL DISTRIBUTION WIDTH 13.3 % (11.0-15.5); WHITE BLOOD COUNT (AUTO) 6.8 K/uL (4.8-10.8)
[2019-07-28 06:05] LABS: CREATININE 0.8 mg/dL (0.5-1.5); POTASSIUM 3.4 mmol/L (3.5-5.1)
[2019-07-28 08:00] VITALS: BP 132/78
[2019-07-28] MEDS: FAMOTIDINE 20MG TAB 20 MG TAB PO SCH ×2 (08:11→20:22)
[2019-07-28] MEDS: ENOXAPARIN SODIUM 40 MG/0.4 ML SYRINGE SQ SCH (08:12)
[2019-07-28] MEDS: MAGNESIUM OXIDE 400 MG TABLET PO SCH (08:12)
[2019-07-28] MEDS: HYDROCODONE/ACETAMINOPHEN 5/325 MG TAB PO PRN (08:13)
[2019-07-28] MEDS: DIPHENHYDRAMINE HCL 25 MG CAPSULE PO PRN ×2 (11:16→22:09)
[2019-07-28 12:00] VITALS: BP 135/73
[2019-07-28 16:00] VITALS: BP 130/80
[2019-07-28 20:00] VITALS: BP 147/87
[2019-07-28] MEDS: TEMAZEPAM 7.5 MG CAPSULE PO SCH (20:22)
[2019-07-29] VITALS (7 sets, daily range): BP systolic 123–157; BP diastolic 70–94
[2019-07-29] MEDS: ZOSYN 3.375GM+NS 50ML 50 ML IV SCH ×3 (06:16→22:16)
[2019-07-29 06:17] LABS: HEMATOCRIT 36.5 % (36-48); MEAN CORPUSCULAR HEMOGLOBIN 31.3 pg (27.0-33.0); MEAN CORPUSCULAR HGB CONC 33.4 g/dL (32.0-36.0); MEAN CORPUSCULAR VOLUME 93.7 fL (79-99); NUCLEATED RED BLOOD CELLS 0.1 % (0.0-0.19); PLATELET COUNT (AUTO) 323 K/uL (130-400); RED CELL DISTRIBUTION WIDTH 13.5 % (11.0-15.5); WHITE BLOOD COUNT (AUTO) 7.9 K/uL (4.8-10.8)
[2019-07-29] MEDS: DIPHENHYDRAMINE HCL 25 MG CAPSULE PO PRN ×3 (06:21→23:52)
[2019-07-29 06:30] LABS: CREATININE 0.7 mg/dL (0.5-1.5)
[2019-07-29 07:11] LABS: POTASSIUM 4.2 mmol/L (3.5-5.1)
[2019-07-29] MEDS: MAGNESIUM OXIDE 400 MG TABLET PO SCH (08:25)
[2019-07-29] MEDS: HYDROCODONE/ACETAMINOPHEN 5/325 MG TAB PO PRN ×2 (08:25→23:52)
[2019-07-29] MEDS: ENOXAPARIN SODIUM 40 MG/0.4 ML SYRINGE SQ SCH (08:26)
[2019-07-29] MEDS: FAMOTIDINE 20MG TAB 20 MG TAB PO SCH ×2 (08:26→22:16)
--- NOTE | 2019-07-29 13:07 | NUR ---
Dr. Mireles Paged Dr. Mireles paged to notify him about lithotripsy procedure pending for 07/30/2019 as out pt, Pt noted to be non-funded, paged to be notified that pt is still inpatient on abx, white count within normal limit and if we can get orders for the procedure tomorrow. Pending call back for orders. Nursing will continue to follow up.
[2019-07-29] MEDS: KETOROLAC TROMETHAMINE 10 MG TABLET PO PRN (15:38)
--- NOTE | 2019-07-29 18:26 | NUR ---
Nutrition Intervention: Nutrition screen based on LOS x 7 days. Pt. S/P percutaneous nephrostomy tube placement(07/23/19). Pt. on GI Soft Todd diet with good p.o. intake, as per pt. Labs reviewed(Alb 2.5). Spoke with pt. regarding protein supplementation and pt. agreed to try. LBM: 07/28/19. SR-19, left nephrostomy tube. BMI: 47.9, morbid obesity. Recommendations: 1) Rec. Heart Healthy diet. 2) Rec. 30ml ProMod BID with B'fast and Dinner meals. 3) Continue to monitor pt's nutritional status. 4) Consult RD as nutrition concerns arise. Addendum: 07/29/19 at [address] Amended: Links added.
[2019-07-29] MEDS: TEMAZEPAM 7.5 MG CAPSULE PO SCH (22:16)
[2019-07-30] VITALS (26 sets, daily range): BP systolic 123–166; BP diastolic 56–97
[2019-07-30] MEDS: ZOSYN 3.375GM+NS 50ML 50 ML IV SCH ×3 (05:02→22:36)
[2019-07-30 06:02] LABS: HEMATOCRIT 35.2 % (36-48); MEAN CORPUSCULAR HEMOGLOBIN 31.1 pg (27.0-33.0); MEAN CORPUSCULAR HGB CONC 33.7 g/dL (32.0-36.0); MEAN CORPUSCULAR VOLUME 92.3 fL (79-99); PLATELET COUNT (AUTO) 342 K/uL (130-400); RED BLOOD CELL COUNT(AUTO) 3.82 MIL/uL (4.00-5.50); RED CELL DISTRIBUTION WIDTH 13.7 % (11.0-15.5); WHITE BLOOD COUNT (AUTO) 8.2 K/uL (4.8-10.8)
[2019-07-30 06:18] LABS: CREATININE 0.8 mg/dL (0.5-1.5); POTASSIUM 3.4 mmol/L (3.5-5.1)
--- NOTE | 2019-07-30 07:08 | NUR ---
pt off the floor for a procedure by Dr. Mireles at this time, nursing will continue to follow up.
[2019-07-30] MEDS ORDERED: LACTATED RINGERS 1000ML 1,000 ML IV ONE (07:11)
[2019-07-30 07:59] LABS: BAND NEUTROPHILS % (MANUAL) 1 % (0-2); BASOPHILS % (MANUAL) 3 % (0-2); EOSINOPHILS % (MANUAL) 1 % (1-6); LYMPHOCYTES % (MANUAL) 47 % (22-44); MAN.DIFF COMMENT-IMPRESSION MANUAL DIFFERENTIAL; MONOCYTES % (MANUAL) 3 % (2-9); REACTIVE LYMPHOCYTES 2 % (0-0); SEGMENTED NEUTROPHILS % 43 % (40-70)
[2019-07-30] MEDS ORDERED: PROPOFOL 10 MG/ML 20ML VIAL IV ONE (08:08)
[2019-07-30] MEDS ORDERED: FENTANYL CITRATE PF 50 MCG/1 ML 2ML VIAL ONE (08:08)
[2019-07-30] MEDS ORDERED: ONDANSETRON HCL 4 MG/2 ML VIAL ONE (08:08)
[2019-07-30] MEDS ORDERED: MIDAZOLAM HCL 1 MG/ML 2ML VIAL ONE (08:08)
[2019-07-30] MEDS ORDERED: LIDOCAINE PF 2% 5ML ABBOJECT ONE (08:08)
[2019-07-30] MEDS ORDERED: SUCCINYLCHOLINE 200MG/10ML SYR ONE (08:08)
[2019-07-30] MEDS ORDERED: GLYCOPYRROLATE 1 MG/5 ML SYRINGE ONE ×2 (08:08→09:05)
[2019-07-30] MEDS ORDERED: ROCURONIUM 10MG/1ML SYR 10 MG/ML ML ONE (08:08)
[2019-07-30] MEDS ORDERED: NEOSTIGMINE 5MG/5ML SYR IV ONE (08:08)
[2019-07-30] MEDS ORDERED: DEXAMETHASONE SOD PHOSPHATE 10MG/ML 1ML VIAL ONE (08:08)
[2019-07-30] MEDS ORDERED: IOHEXOL-350 50ML VIAL IV ONE (08:12)
[2019-07-30] MEDS ORDERED: CEFAZOLIN SODIUM 1 GM VIAL ONE (08:17)
[2019-07-30] MEDS: ENOXAPARIN SODIUM 40 MG/0.4 ML SYRINGE SQ SCH (09:00)
[2019-07-30] MEDS: MAGNESIUM OXIDE 400 MG TABLET PO SCH (09:00)
[2019-07-30] MEDS: FAMOTIDINE 20MG TAB 20 MG TAB PO SCH ×2 (09:00→22:36)
[2019-07-30] MEDS ORDERED: MEPERIDINE-PF 25 MG/ML SYG ONE (09:54)
[2019-07-30] MEDS: HYDROCODONE/ACETAMINOPHEN 5/325 MG TAB PO PRN ×2 (12:46→22:37)
[2019-07-30] MEDS: SODIUM CHLORIDE 0.9% 1000ML 1,000 ML IV SCH (14:00)
[2019-07-30] MEDS: TEMAZEPAM 7.5 MG CAPSULE PO SCH (22:36)
[2019-07-31] VITALS (7 sets, daily range): BP systolic 119–136; BP diastolic 57–83
[2019-07-31] MEDS: SODIUM CHLORIDE 0.9% 1000ML 1,000 ML IV SCH ×3 (00:33→22:26)
[2019-07-31] MEDS: ZOSYN 3.375GM+NS 50ML 50 ML IV SCH ×3 (04:53→20:39)
[2019-07-31] MEDS ORDERED: POTASSIUM CHLORIDE 20 MEQ ERTAB PO ONE (04:57)
[2019-07-31] MEDS: HYDROCODONE/ACETAMINOPHEN 5/325 MG TAB PO PRN ×4 (04:59→22:26)
[2019-07-31] MEDS ORDERED: POTASSIUM CHLORIDE 20 MEQ ERTAB PO PRN (05:00)
[2019-07-31] MEDS ORDERED: POTASSIUM CHLORIDE 10% ELIXIR 20 MEQ/15 ML UDCUP PO PRN (05:00)
[2019-07-31] MEDS ORDERED: POTASSIUM CHLORIDE 20MEQ/100ML 100 ML IV PRN (05:00)
[2019-07-31] MEDS ORDERED: ACET1TAB12 PO (08:50)
[2019-07-31] MEDS ORDERED: LEVO500T2 PO (08:52)
[2019-07-31] MEDS: FAMOTIDINE 20MG TAB 20 MG TAB PO SCH ×2 (09:31→20:39)
[2019-07-31] MEDS: ENOXAPARIN SODIUM 40 MG/0.4 ML SYRINGE SQ SCH (09:32)
[2019-07-31] MEDS: MAGNESIUM OXIDE 400 MG TABLET PO SCH (09:32)
--- NOTE | 2019-07-31 09:42 | NUR ---
[facility] D/C PENDING PT TO VOID BEFORE D/C HOME
[2019-07-31] MEDS: ACETAMINOPHEN 325 MG TAB PO PRN (13:25)
--- NOTE | 2019-07-31 16:30 | NUR ---
PT STATED SHE VOIDED AT THIS TIME, URINE HAS A PINK COLOR, NO FOUL ODOR, DR. ARORA'S OFFICE ALSO CALLED TO GET CLEARANCE FOR D/C, OFFICE STAFF STATED DR. ARORA SHOULD BE ROUNDING SOON HE IS DONE WITH CLINICALS. NURSING WILL CONTINUE TO FOLLOW UP.
[2019-07-31] MEDS: TEMAZEPAM 7.5 MG CAPSULE PO SCH (22:25)
[2019-08-01 03:42] VITALS: BP 121/64
[2019-08-01] MEDS: ZOSYN 3.375GM+NS 50ML 50 ML IV SCH (05:36)
[2019-08-01 07:15] VITALS: BP 132/74
[2019-08-01] MEDS: MAGNESIUM OXIDE 400 MG TABLET PO SCH (09:00)
[2019-08-01] MEDS: FAMOTIDINE 20MG TAB 20 MG TAB PO SCH (09:40)
[2019-08-01] MEDS: ENOXAPARIN SODIUM 40 MG/0.4 ML SYRINGE SQ SCH (09:41)
[2019-08-01 10:11] LABS: MEAN CORPUSCULAR HEMOGLOBIN 31.4 pg (27.0-33.0); MEAN CORPUSCULAR HGB CONC 33.6 g/dL (32.0-36.0); MEAN CORPUSCULAR VOLUME 93.3 fL (79-99); NUCLEATED RED BLOOD CELLS 0.1 % (0.0-0.19); PLATELET COUNT (AUTO) 326 K/uL (130-400); RED BLOOD CELL COUNT(AUTO) 4.07 MIL/uL (4.00-5.50); RED CELL DISTRIBUTION WIDTH 13.7 % (11.0-15.5); WHITE BLOOD COUNT (AUTO) 6.4 K/uL (4.8-10.8)
[2019-08-01 10:24] LABS: CREATININE 0.9 mg/dL (0.5-1.5); POTASSIUM 3.8 mmol/L (3.5-5.1)
[2019-08-01 10:36] VITALS: BP 140/94
[2019-08-01 11:35] LABS: BASOPHILS % (MANUAL) 1 % (0-2); EOSINOPHILS % (MANUAL) 5 % (1-6); LYMPHOCYTES % (MANUAL) 42 % (22-44); MAN.DIFF COMMENT-IMPRESSION MANUAL DIFFERENTIAL; MONOCYTES % (MANUAL) 4 % (2-9); PLATELET MORPHOLOGY COMMENT ADEQUATE; SEGMENTED NEUTROPHILS % 48 % (40-70)
== END 2019-08-01 14:56 | disposition home or self-care (01) | DRG 659 ==
LOC: EDH 08:43 → EDHIP 08:44 → OBSVTOIN 08:44 → 3BH 19:42 → 4DH 07-30 11:58
PROVIDERS: ADMIT Family Medicine; ATTEND Family Medicine
PROC: 0T25X0Z Change Drainage Device in Kidney, External Approach (ICD-10-PCS; 2019-07-23)
PROC: 0TC78ZZ Extirpation of Matter from Left Ureter, Via Natural or Artificial Opening Endoscopic (ICD-10-PCS; principal; 2019-07-30 08:12)
PROC: 0T778DZ Dilation of Left Ureter with Intraluminal Device, Via Natural or Artificial Opening Endoscopic (ICD-10-PCS; 2019-07-30 08:12)
DX: T83.022A Displacement of nephrostomy catheter, initial encounter (principal); A41.9 Sepsis, unspecified organism; N13.6 Pyonephrosis; N20.2 Calculus of kidney with calculus of ureter; Z68.42 Body mass index [BMI] 45.0-49.9, adult; K57.90 Diverticulosis of intestine, part unspecified, without perforation or abscess without bleeding; E87.6 Hypokalemia; E66.01 Morbid (severe) obesity due to excess calories; F17.200 Nicotine dependence, unspecified, uncomplicated; Y83.8 Other surgical procedures as the cause of abnormal reaction of the patient, or of later complication, without mention of misadventure at the time of the procedure; Z93.6 Other artificial openings of urinary tract status; Z90.711 Acquired absence of uterus with remaining cervical stump; Y92.89 Other specified places as the place of occurrence of the external cause
CPT/HCPCS: 36415; 50432; 74176; 74420; 80048; 80053; 81001; 82360; 83605; 83735; 84100; 84145; 85025; 85027; 85610; 85730; 87040; 87071; 87205; 99156; 99157; A4344; C1729; C1758; C1769; C1894; C2617; G0378; J0330; J0690; J1100; J1644; J1650; J2001; J2175; J2250; J2270; J2405; J2543; J2704; J2710; J3010; J3475; J3490; J7030; J7120; Q0163; Q9967